=== PATIENT | male | born 1995 | race Caucasian/White ===

== ENCOUNTER 2019-05-30 18:49 | Emergency (ER) | payer SELFPAY ==
[~2019-05-30] VITALS: Ht 175.3 cm; Wt 81.2 kg
[2019-05-30 18:54] VITALS: BP_SYST 126
--- NOTE | 2019-05-30 18:55 | NUR ---
Patient to ER bed h1 to gown for evaluation. Side rails up.
--- NOTE | 2019-05-30 18:56 | NUR ---
ER at bedside examining patient.
--- NOTE | 2019-05-30 19:20 | NUR ---
patient BIB [facility] in custody for medical clearance. patient presents with a stable gait and is AOx4 without current distress. patient denies drug, ETOH or smoking of any kind. no other complaint or injury at this time.
[2019-05-30 19:36] VITALS: BP_SYST 120
--- NOTE | 2019-05-30 19:40 | NUR ---
Patient given written and verbal discharge instructions and verbalizes understanding. ER MD discussed with patient the results and treatment provided. Patient in stable condition. ID arm band removed. Rx of zero given. Patient educated on pain management and to follow up with PMD. Pain Scale 0/10. Opportunity for questions provided and answered. Medication side effect fact sheet provided.
== END 2019-05-30 19:36 ==
LOC: SED 18:49
DX: S50.01XA Contusion of right elbow, initial encounter (principal); F10.129 Alcohol abuse with intoxication, unspecified; Y90.9 Presence of alcohol in blood, level not specified; V49.69XA Unspecified car occupant injured in collision with other motor vehicles in traffic accident, initial encounter; Y93.89 Activity, other specified; Y92.488 Other paved roadways as the place of occurrence of the external cause; Y99.8 Other external cause status
CPT/HCPCS: 99283